=== PATIENT | male | born 1980 | race Caucasian/White ===

== ENCOUNTER 2023-06-06 05:29 | Day surgery (SDC) | payer OTHER ==
[~2023-06-06] VITALS: Ht 190.5 cm; Wt 165.6 kg
[2023-06-06 06:38] VITALS: BP 129/79; TEMP 97.8; O2SAT 100
[2023-06-06] MEDS ORDERED: MIDAZOLAM HCL 2 MG/2ML VIAL ONE (07:02)
[2023-06-06] MEDS ORDERED: FENTANYL PF 250MCG/5ML AMPUL ONE (07:02)
[2023-06-06] MEDS ORDERED: ANESTHESIA TRAY IN PYXIS 1 EA TRAY MC ONE ×2 (07:02→13:08)
[2023-06-06] MEDS ORDERED: ROCURONIUM BROMIDE 50 MG/5 ML ONE (07:02)
[2023-06-06] MEDS ORDERED: TRANEXAMIC ACID 1,000 MG/10 ML VIAL ONE (07:02)
[2023-06-06] MEDS ORDERED: FAMOTIDINE/PF INJ 20 MG/2 ML VIAL IV ONE (07:02)
[2023-06-06] MEDS ORDERED: ACETAMINOPHEN 325 MG TABLET ONE (07:18)
[2023-06-06] MEDS ORDERED: BUPIVACAINE 0.5 % PF 150 MG/30 ML VIAL ONE ×2 (08:12→09:21)
[2023-06-06] MEDS ORDERED: ROPIVACAINE HCL 0.5% 5 MG/ML 30ML VIAL ONE (09:19)
[2023-06-06 10:00] VITALS: BP 126/72; TEMP 97.9; O2SAT 96
[2023-06-06] MEDS ORDERED: HYDROMORPHONE 1 MG/1 ML DISP.SYRIN ONE ×2 (10:15→10:44)
[2023-06-06] MEDS ORDERED: ONDANSETRON HCL/PF 4 MG/2 ML VIAL ONE (10:53)
[2023-06-06] MEDS ORDERED: oxyCODONE/APAP (5/325 MG) 1 UDTAB TABLET PO PRN (11:00)
[2023-06-06] MEDS ORDERED: CEFAZOLIN 2 GM in IV D5W 100 ML IV ONE (12:00)
[2023-06-06] MEDS ORDERED: ANCEF 1 GM/50 ML D5W IV ONE ×2 (12:30)
[2023-06-06 16:00] VITALS: BP 134/68; TEMP 97.7; O2SAT 94
== END 2023-06-06 18:15 | disposition home or self-care (01) ==
LOC: DS 05:29 → MED 05:59 → DS 18:15
PROVIDERS: ATTEND Student in an Organized Health Care Education/Training Program
DX: S46.012A Strain of muscle(s) and tendon(s) of the rotator cuff of left shoulder, initial encounter (principal); X58.XXXA Exposure to other specified factors, initial encounter; Y93.89 Activity, other specified; Y92.89 Other specified places as the place of occurrence of the external cause; Y99.8 Other external cause status
CPT/HCPCS: 23420; 87081; 82962 ×2; J0690 ×3; J3490 ×4; J1100; J2704; J2765; J0330; J1885; J2405 ×2; J7060 ×2; J7030; J2250; J3010; A4223; J1170 ×2; G0378; J2795